=== PATIENT | male | born 1955 | race American Indian/Alaskan Native ===

== ENCOUNTER 2018-10-30 09:01 | Outpatient (CLI) | payer MEDICAID ==
--- NOTE | 2018-10-30 10:53 | Cat Scan Report ---
CT CHEST WITHOUT CONTRAST: HISTORY: Solitary pulmonary nodule. COMPARISON: none. TECHNIQUE: Helical CT in 1.25mm intervals without IV contrast. Sagittal and coronal reformatted images. FINDINGS: Thyroid gland: Normal. Tracheobronchial tree: Normal. Esophagus: Normal. Heart: Moderate coronary artery calcifications are noted. Heart size is normal. Pericardium: Normal. Mediastinum: Normal. Lung Mace: There is minor linear atelectasis or scarring in the right lower lobe. No evidence for suspicious nodule, infiltrate or parenchymal lung disease. Pleural Spaces: Normal. Musculoskeletal: Normal. IMPRESSION: Minor linear scarring or atelectasis in the right lower lobe. No pulmonary nodules identified on CT. Coronary artery calcifications.
== END 2018-10-30 09:02 | disposition home or self-care (01) ==
LOC: CT 09:01
PROVIDERS: ATTEND Internal Medicine
DX: R91.1 Solitary pulmonary nodule (principal); I25.10 Atherosclerotic heart disease of native coronary artery without angina pectoris
CPT/HCPCS: 36600; 71250; 82803